=== PATIENT | male | born 1945 | race Caucasian/White ===

== ENCOUNTER 2016-09-27 00:35 | Day surgery (SDC) | payer MEDICARE, OTHER ==
[~2016-09-27] VITALS: Ht 177.8 cm; Wt 68.2 kg
[2016-09-27] VITALS (11 sets, daily range): BP systolic 93–159; BP diastolic 70–91; PULSE 50–112; RESP 14–24; O2SAT 93–100
[~2016-09-27 00:35] MED LIST: DIGO250T72 PO; METO-274 PO; OMEP20CA11 PO; WARF7.5T4 PO
[2016-09-27] MEDS ORDERED: FLC50T PO (13:27)
--- NOTE | 2016-09-27 13:47 | NUR ---
JOSUE Patient admitted to [facility] bed 1 for cardioversion. at bedside. HL placed and labs drawn. Medications reviewed. Patients states he does not want to answer admit questions unless it is directly related to the cardioversion.
[2016-09-27 13:53] LABS: INR 2.22 ratio
[2016-09-27] MEDS ORDERED: Methohexital 10 mg/mL 50 mL Inj ONE (13:57)
[2016-09-27] MEDS ORDERED: 0.9% Sodium Chloride 1,000 ML IV PRN (14:23)
[2016-09-27] MEDS ORDERED: 0.9% Sodium Chloride 250 ML IV PRN (14:23)
[2016-09-27] MEDS ORDERED: Atropine 1 mg/10 mL (Code) Syringe IVPUSH PRN (14:25)
[2016-09-27] MEDS ORDERED: HYDROcodone-APAP 5-325 mg Tablet PO PRN (14:25)
[2016-09-27] MEDS ORDERED: Ondansetron 2 mg/mL 2 mL Inj IVPUSH PRN (14:25)
--- NOTE | 2016-09-27 14:39 | PCM.PROC ---
Procedure Note Date of Service: Sep 27, 2016 Pre Procedure Diagnosis: Symptomatic Afib Post Procedure Diagnosis: Normal sinus rhythm Procedure: Electrical cardioversion Provider and Infrastructure Solutions Architect: Jr. Joseluis Cano RN Indication for Procedure: Symptomatic atrial fibrillation Procedural Analgesia: Brevital 32 mg IV push Versed 1 mg IV push Procedure Details: A timeout was performing the correct patient procedure were verified. Patient was placed on continuous cardiac monitoring and continuous pulse oximetry. Supplemental oxygen was administered via nasal cannula. Defibrillator pads were placed in the anterior and posterior fashion. The pads were connected to a biphasic defibrillator which was placed in sync mode. After appropriate level of sedation was achieved, synchronize cardioversion was performed at 120 joules with successful conversion to sinus rhythm. Post Procedure Plan: Follow-up in 6 weeks with repeat EKG. No changes with medications. Attending Statement The patient did very well but would probably recommend no more than 30 mg of IV Brevital if a repeat cardioversion is needed. Charly Meza MD Sep 27, 2016 14:39
--- NOTE | 2016-09-27 15:34 | NUR ---
Assisted with cardioversion time spent aprox. 25 min.
--- NOTE | 2016-09-27 15:40 | NUR ---
DISCHARGE NOTE INSTRUCTIONS GIVEN. UP IN ROOM. HOME WITH
== END 2016-09-27 23:59 | disposition home or self-care (01) ==
LOC: SOUO 00:35 → EDSTATUS 09:44 → SOUO 23:59
PROVIDERS: ATTEND Internal Medicine Cardiovascular Disease
DX: I48.2 Chronic atrial fibrillation (principal); I10 Essential (primary) hypertension; I42.9 Cardiomyopathy, unspecified; E78.5 Hyperlipidemia, unspecified; Z85.01 Personal history of malignant neoplasm of esophagus; F17.210 Nicotine dependence, cigarettes, uncomplicated; Z79.01 Long term (current) use of anticoagulants
CPT/HCPCS: 36415; 80048; 85610; 92960; 93005; 94799; 99152; J2250